=== PATIENT | male | born 1945 | race Caucasian/White ===

== ENCOUNTER 2018-11-29 09:30 | Day surgery (SDC) | payer MEDICARE ==
[2018-11-27 10:05] VITALS: BMI 24.8
[~2018-11-29 09:30] MED LIST: LIDOCAINE 1% 20 ML VIAL (10MG/ML) FOR IV START INTRADERMA PRN
[2018-11-29 09:54] VITALS: RESP 16; TEMP 97.8
[2018-11-29] MEDS: LACTATED RINGERS 1,000 ML IV SCH ×2 (10:10→10:24)
[2018-11-29] MEDS ORDERED: PROPOFOL 10 MG/ML 20 ML VIAL IV ONE (10:26)
[2018-11-29 10:48] VITALS: PULSE 59
--- NOTE | 2018-11-29 10:52 | P.PCN ---
Date of Procedure: 11/29/18 Procedure(s) Performed: Procedure: Total colonoscopy. Preoperative diagnoses: Screening for neoplasia, patient has history of polyps. Postoperative diagnosis: Sigmoid diverticulosis with no evidence of acute diverticulitis, strictures, polyps or cancer. Preparation: HalfLytely prep. Sedation: Was provided by anesthesia. Brief clinical history: The patient is a 72-year-old male who is scheduled for this evaluation for screening for neoplasia because of history of polyps in addition of age as risk factor. His last exam was in 2011. The patient has no significant abdominal pains, rectal bleeding or anemia. Procedure: With the patient on his left lateral decubitus position and after informed consent and adequate sedation, the perianal area was inspected and it did not show any fissures or fistulas. There were no masses felt on digital rectal examination. The Olympus CFH 190L video colonoscope was then inserted in the rectum in the usual fashion and advanced to the cecum. There were multiple diverticular orifices seen scattered in the sigmoid but I saw no evidence of acute diverticulitis so strictures. No polyps or tumors were seen. The mucosa appeared healthy. I retroflexed the endoscope in the rectum before the endoscope was withdrawn. The patient tolerated the procedure well. Plan: The patient was reassured. Discussed dietary measures. He will follow up with you as planned. Consideration can be given for repeat exam in 5 years depending on his overall health at that time. He will discuss that with you.
[2018-11-29 11:19] VITALS: BP 145/75
== END 2018-11-29 11:43 | disposition home or self-care (01) ==
LOC: ORWHC2ENDO 09:30
DX: Z12.11 Encounter for screening for malignant neoplasm of colon (principal); K57.30 Diverticulosis of large intestine without perforation or abscess without bleeding; Z86.010 Personal history of colon polyps; B02.9 Zoster without complications; N40.0 Benign prostatic hyperplasia without lower urinary tract symptoms; Z79.899 Other long term (current) drug therapy
CPT/HCPCS: J2704; G0105; 45378

== ENCOUNTER → 2020-10-27 | Outpatient (CLI) | payer MEDICARE ==
--- NOTE | 2020-10-27 12:35 | XR ---
EXAMINATION TYPE: XR abdomen 1V DATE OF EXAM: 10/27/2020 12:19 PM CLINICAL HISTORY: Calculus kidney border. TECHNIQUE: Two supine KUB images of the abdomen are obtained. COMPARISON: None. FINDINGS: No definite nephrolithiasis. Overall nonobstructive bowel gas pattern. Lung bases are clear. Advanced degenerative change right hi p joint incidentally noted with marked superior joint space loss and joint space sclerosis. Transitio nal type vertebra lumbosacral junction. IMPRESSION: No definitive nephrolithiasis. Consider CT evaluation if suspicion persists.
== END | disposition home or self-care (01) ==
LOC: RADXRMAIN 12:00
PROVIDERS: ATTEND Urology
DX: N20.0 Calculus of kidney (principal)
CPT/HCPCS: 74018

== ENCOUNTER → 2025-05-29 | Outpatient (CLI) | payer MEDICARE ==
--- NOTE | 2025-05-29 17:35 | US ---
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 Left flank pain that wraps from front to back. Hx Urinary retention TECHNIQUE: Grayscale imaging of the bilateral kidneys and urinary bladder: FINDINGS: EXAM MEASUREMENTS: Right Kidney: 12.5 x 4.7 x 5.1 cm Left Kidney: 12.8 x 4.5 x 5.0 cm Post Void Residual Volume: 553 mL Right Kidney: Cystic structure seen upper lateral pole - otherwise WNL Left Kidney: Simple cystic structure seen lower medial pole - otherwise WNL Bladder: Multiple bladder diverticulum Bilateral Jets seen: Yes Normal Post Void Residual: No There is no evidence for hydronephrosis at this point in time. No nephrolithiasis is seen. Right paul al upper pole thin wall anechoic cyst. Additional simple cyst identified within the lower medial pole of the left kidney. Corticomedullary differentiation is maintained bilaterally. No solid renal ruby s are identified. The urinary bladder is anechoic with multiple bladder diverticulum. Bilateral uret eral jets identified. IMPRESSION: 1. No hydronephrosis or nephrolithiasis. 2. Simple appearing bilateral renal cysts. 3. Multiple urinary bladder diverticula. [facility], , 05/29/2025 5:33 PM
== END | disposition home or self-care (01) ==
LOC: RADUSWWP 16:19
PROVIDERS: ATTEND Urology
DX: N40.1 Benign prostatic hyperplasia with lower urinary tract symptoms (principal); N13.8 Other obstructive and reflux uropathy; N28.1 Cyst of kidney, acquired; N32.3 Diverticulum of bladder; R33.9 Retention of urine, unspecified
CPT/HCPCS: 76770